=== PATIENT | female | born 1985 ===

== ENCOUNTER 2018-03-18 16:46 | Emergency (ER) | payer OTHER ==
--- NOTE | 2018-03-18 17:19 | UC ---
Abdominal Pain Female HPI - HPI Summary HPI Summary: 32 yo female presents with intermittent LUQ for the last 6 months. She tells me that over the last 6 months she will notice sharp pains in her LUQ that radiation around to her left back/flank. Sometimes these will make her nauseous. They occur randomly and are not associated with eating, drinking, or activity. Symptoms last 1-3hours and resolve spontaneously. She has 4-5 episodes of this each month. She denies fever, chills, SOB, chest pain, vomiting , diarrhea, dysuria, vaginal discharge or abnormal bleeding. - History of Current Complaint Stated Complaint: ABDOMINAL PAIN Time Seen by Provider: 03/18/18 17:18 Hx Obtained From: Patient Onset/Duration: Gradual Onset Timing: Constant Severity Initially: Mild Severity Currently: Mild Pain Intensity: 3 Pain Scale Used: 0-10 Numeric Location: Discrete At: LUQ Radiates: Yes Radiates to: Back, Flank Allergies/Adverse Reactions: Allergies Allergy/AdvReac Type Severity Reaction Status Date / Time No Known Allergies Allergy Verified 03/18/18 17:30 Home Medications: Home Medications Aspirin 81 mg CHEW TAB* [Aspirin Low Dose TAB*] 81 mg PO DAILY 03/18/18 [ History Confirmed 03/18/18] Levonorgestrel (Iud) [Mirena IUD] 20 mcg IU DAILY 03/18/18 [History Confirmed ] PMH/Surg Hx/FS Hx/Imm Hx - Additional Past Medical History Additional PMH: Migraines 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 Asthma - Surgical History Surgical History: Yes - Ovarian procedure - Family History Known Family History: Positive: None - Social History Occupation: Employed Full-time Lives: With Family Alcohol Use: Occasionally Substance Use Type: None Smoking Status (MU): Never Smoked Tobacco Review of Systems All Other Systems Reviewed And Are Negative: Yes Constitutional: Positive: Negative Skin: Positive: Negative Eyes: Positive: Negative ENT: Positive: Negative Respiratory: Positive: Negative Cardiovascular: Positive: Negative Gastrointestinal: Positive: Abdominal Pain, Nausea Genitourinary: Positive: Negative Motor: Positive: Negative Neurovascular: Positive: Negative Musculoskeletal: Positive: Negative Neurological: Positive: Negative Psychological: Positive: Negative Physical Exam - Summary Physical Exam Summary: GENERAL: NAD. WDWN. No pain distress. SKIN: No rashes, sores, lesions, or open wounds. NECK: Supple. Nontender. No lymphadenopathy. CHEST: CTAB. No r/r/w. No accessory muscle use. Breathing comfortably and in no distress. CV: RRR. Without m/r/g. Pulses intact. Cap refill <2seconds ABDOMEN: Mild TTP LUQ and around spleen with radiation to left CVA. Soft. NTTP. No distention or guarding. No organomegaly. LEFT CVA tenderness. Bowel sounds present NEURO: Alert. PSYCH: Age appropriate behavior. Triage Information Reviewed: Yes Vital Signs: Vital Signs: Temp Pulse Resp BP Pulse Ox 98.9 F 73 18 103/58 99 03/18/18 17:22 03/18/18 17:22 03/18/18 17:22 03/18/18 17:22 03/18/18 17:22 Laboratory Tests 03/18/18 17:51 POC Urine Color Dark yellow POC Urine Clarity Clear POC Urine pH 5.5 POC Ur Specif [place] >= 1.030 POC Urine Protein Negative POC Ur Glucose (UA) Negative POC Urine Ketones 1+ A POC Urine Blood 1+ A POC Urine Nitrite Positive A POC Urine Bilirubin 1+ A POC Urine Urobilinogen 0.2 POC U Leukocyte Esteras Trace A Vital Signs Reviewed: Yes Abd Pain Female Course/Dx - Course Course Of Treatment: UA positive for UTI. EKbpm NSR no ST changes as read by Dr. Loera. CT: IMPRESSION: No acute intra-abdominal findings. Discussed results with the pt. Will treat for her UTI and refer her to GI for further evaluation of her LUQ pain. Advised to go to the ED if she develops new or worsening symptoms. - Differential Dx/Diagnosis Provider Diagnosis: LUQ pain, Nausea, UTI (urinary tract infection) Discharge - Sign-Out/Discharge Documenting (check all that apply): Patient Departure All imaging exams completed and their final reports reviewed: Yes - Discharge Plan Condition: Stable Disposition: HOME Prescriptions: Sulfamethox/Trimethoprim DS* [Bactrim DS 800/160 TAB*] 1 tab PO BID #10 tab Patient Education Materials: Abdominal Pain (ED) Referrals: No Primary Care Phys,NOPCP [Primary Care Provider] - Nadir Thomas MD [Medical Doctor] - As Soon As Possible Additional Instructions: If you develop a fever, shortness of breath, chest pain, new or worsening symptoms - please call your PCP or go to the ED. 1) Please call Gastroenterology at the number below to schedule a follow up appointment as soon as possible for further evaluation of your pain - Billing Disposition and Condition Condition: STABLE Disposition: Home
== END 2018-03-18 19:28 | disposition home or self-care (01) ==
LOC: UCEAST 16:46
DX: B96.1 Klebsiella pneumoniae [K. pneumoniae] as the cause of diseases classified elsewhere (principal); N39.0 Urinary tract infection, site not specified; R10.12 Left upper quadrant pain; R11.0 Nausea
CPT/HCPCS: 74176; 81003; 87077; 87086; 87186; 93005; 99202; G0463